=== PATIENT | female | born 1950 | race Caucasian/White ===

== ENCOUNTER 2023-06-22 07:20 | Day surgery (SDC) | payer MEDICARE, OTHER, SELFPAY ==
[2023-06-22] VITALS (11 sets, daily range): BP systolic 89–136; BP diastolic 52–74; BMI 31.2; BMI 27.9
[2023-06-22] MEDS: NSS 218 ML IV (07:57)
[2023-06-22 08:06] LABS: Glucose - Point of Care 166 mg/dl (70-99)
--- NOTE | 2023-06-22 09:21 | ITS.CL.CATH ---
Roll Finisher - Catheterization
Cardiac Catheterization
Procedure Report:
CARDIAC CATHETERIZATION REPORT
Date of Procedure: 06/22/2023
Referring: Sixto Davies MD
Indication: Chronic but worsening exertional dyspnea with severe pulmonary hypertension and oxygen dependent COPD
HEMODYNAMIC DATA (RHC performed at weight 167 pounds on 3 L/min O2)
AO: 108/55
LV: 108/16
PCWP: 14
PA: 97/34
RV: 97/16
RA: 12
Oximetry: Ao 91%, PA 68%, cardiac output 4.4, cardiac index 2.4
LEFT VENTRICULOGRAPHY: Normal segmental wall motion with EF 68%
CORONARY ANGIOGRAPHY
Dominance: Right
Left Main: Normal
LAD: Normal 30% proximal and 40% mid LAD stenoses similar in appearance to the prior study from 01/27/2022
Circumflex: 50-60% proximal OM1 stenosis with 60% circumflex stenosis immediately distal to the origin of OM1. The circumflex terminates with a small OM 2.
RCA: Dominant calcified vessel with diffuse mild luminal disease throughout
Closure Device: None-the procedure was performed via the right radial artery and right femoral vein. The Jimbo's test was normal prior to the procedure.
Radiation (mGy): 339
DAP (cm2.Gy): 33.9
Fluoroscopy time: 7.0 minutes
CONCLUSIONS
1: Normal left heart filling pressures with elevated right heart filling pressures and severe pulmonary hypertension
2: Normal left ventricular segmental wall motion with EF 68%
3. Noncritical CAD as described similar in appearance to the prior study from January 2022
4. Compared with the prior study from January 2022, the pulmonary artery pressure has increased (was measured in 2021 at 82/24 with PCWP 20 and RA 15). The coronary anatomy is similar
Copy to: Sixto Davies MD, Harish Wen MD, Elisabeth Diane DO
Brandan Mayorga MD, [facility], [facility]
== END 2023-06-22 12:45 | disposition home or self-care (01) ==
LOC: CATH 07:20
PROVIDERS: ATTENDING PHYSICIAN Internal Medicine Cardiovascular Disease; FAMILY PHYSICIAN Family Medicine
DX: I25.10 Atherosclerotic heart disease of native coronary artery without angina pectoris (principal); J44.9 Chronic obstructive pulmonary disease, unspecified; Z99.81 Dependence on supplemental oxygen; I27.20 Pulmonary hypertension, unspecified; R06.00 Dyspnea, unspecified; I25.84 Coronary atherosclerosis due to calcified coronary lesion; E11.9 Type 2 diabetes mellitus without complications; I10 Essential (primary) hypertension; E78.5 Hyperlipidemia, unspecified
CPT/HCPCS: 82962; 93460; C1894; Q9967

== ENCOUNTER 2023-09-11 21:40 | Inpatient (IN) | payer MEDICARE, OTHER, SELFPAY ==
[2023-09-11] VITALS (11 sets, daily range): BP systolic 114–144; BP diastolic 63–96; BMI 26.5; BMI 25.3
[2023-09-11 16:16] LABS: % Basophils 0.4 % (0-2); % Eosinophils 0.1 % (0-6); % Immature Granulocytes 0.3 % (0-0.5); % Lymphocytes 12.1 % (20.5-51.1); % Neutrophils 80.1 % (42.2-75.2); Absolute Lymphocytes 1.2 10^3/uL (1.2-3.4); Absolute Monocytes 0.7 10^3/uL (0.1-0.6); Absolute Neutrophils 7.8 10^3/uL (1.4-6.5); Hematocrit 36.8 % (37.0-47.0); Hemoglobin 12.8 g/dL (12.0-16.0); Mean Corp Hgb Conc. 34.8 g/dL (33.0-37.0); Mean Corpuscular Hgb 31.1 pg (27.0-31.0); Mean Corpuscular Volume 89.5 fL (81.0-99.0); Mean Platelet Volume 13.2 fL (7.4-10.4); Nucleated Red Blood Cells % 0 %; Platelet Count 161 10^3/uL (130-400); Red Blood Cell Count 4.11 10^6/uL (4.20-5.40); Red Cell Dist. Width 13.6 % (11.5-14.5); White Blood Cell Count 9.8 10^3/uL (4.8-10.8)
[2023-09-11 16:30] LABS: ALT (SGPT) 36 U/L (0-35); AST (SGOT) 31 U/L (14-36); Albumin 4.8 g/dl (3.5-5.0); Alkaline Phosphatase 48 U/L (38-126); Blood Urea Nitrogen 44 mg/dl (7-17); Calcium 10.4 mg/dl (8.4-10.2); Carbon Dioxide 23 mmol/L (22-30); Chloride 97 mmol/L (98-107); Estimated Creatinine Clearance 23 ml/min; Glucose 124 mg/dl (70-99); Potassium 3.9 mmol/L (3.5-5.1); Sodium 136 mmol/L (135-145); Total Bilirubin 0.8 mg/dl (0.2-1.3); Total Protein 7.1 g/dl (6.3-8.2)
[2023-09-11 16:44] LABS: NT-proBNP 17900 pg/ml
--- NOTE | 2023-09-11 17:51 | ED.GENMED ---
History of Present Illness
General
Chief Complaint: Breathing Problem
Source: patient
Exam Limitations: none
Time Seen by Provider: 09/11/23 17:01
Nursing documentation reviewed up to this point in time: agreed with
Travel History
Have you had any contact with someone who has COVID-19?: No
Do you have any symptoms of coronavirus? Fever > 100 degrees, chills, cough, shortness of breath, sore throat, loss of taste or smell, muscle aches, or headache?: No
History of Present Illness
History of Present Illness:
Patient with history of oxygen dependent COPD and pulmonary hypertension, presents to ED secondary to increased shortness of breath when she attempted to take bath this afternoon. Denies chest pain. Denies fever or chills. Denies nausea,
vomiting, or diarrhea. Denies leg pain or swelling. Denies back pain. At the time of exam in ED, on 6 L oxygen via nasal cannula, patient states that she feels improved. Unfortunately, patient has had ongoing shortness of breath for months,
including multiple admissions at [facility] recently. 2 days ago, patient had consultation with new proposal writer and [facility], who is in the midst of gathering previous test results from different specialists, to come up with 'game
plan'. Patient reports feeling frustrated and feeling depressed due to her ongoing health issues. However, denies suicidal ideation.
Review of Systems
Review of Systems
Allergies reviewed?: Yes
All Other Systems: ROS reviewed and negative except as documented in HPI and ROS
Constitutional: Reports no symptoms
EENT: Reports no symptoms
Respiratory: Reports cough and trouble breathing
Cardiac: Reports no symptoms
ABD/GI: Reports no symptoms
: Reports no symptoms
Musculoskeletal: Reports no symptoms
Skin: Reports no symptoms
Neurological: Reports no symptoms
Phy Exam
Physical Exam
Physical Exam:
Physical Exam
General: mild distress, not acutely ill. afebrile
Head: nc/at. eomi
Neck: supple. no meningeal signs.
Heart: s1/s2 regular rate and rhythm, no murmur. equal radial pulses.
Lungs: no acute respiratory distress. diminished breath sounds bilaterally
Abdomen: normal bowel sounds. not tender.
Neuro: alert and oriented. no focal neurological deficits
Skin: no rash
Psychiatric: well kept. interactive and cooperative
Extremities: no edema. no calf tenderness.
Scores
Heart Failure Risk
Heart Failure Risk Score: Yes
History of Stroke or TIA: No
History of intubation for respiratory distress: No
Heart rate on ED arrival >/= 110: No
SaO2 <90% on arrival on room air: Yes
HR >/=110 during 3min walk test (or too ill to perform test): No
ECG has acute ischemic changes: Yes
Urea >/=12mmol/L (BUN 33.6mg/dL): Yes
Serum CO2>/=35mmol/L: No
Troponin I or T elevated to HI Level (0.4mg/dL): No
NT-proBNP >/=5,000ng/L (5,000pg/ml): Yes
HF Risk Score: 5
Admission Status: VERY HIGH RISK 39.8% Consider admission to hospital
Course
Orders/Labs/Results
Orders:
Orders
09/11/23 Dinner
Cholesterol Lowering
At Your Request: Full Participation
Cholesterol Lowering: Sodium, 2 Gram
09/11/23 16:01
EKG [Electrocardiogram (*1)] Urgent
Reason for Study: Shortness of Breath
EKG- Treatment ONCE
09/11/23 16:09
Complete Blood Count/With Diff Urgent
Comprehensive Metabolic Panel Urgent
NT-proBNP Urgent
Troponin I Urgent
09/11/23 16:47
CXR Port [CR Chest Portable - 1 View] Urgent
Comment:
Reason For Exam: sob
Reason Study Needs to be Portable: Unable to Transport
09/11/23 20:28
Electrocardiogram (*1) Urgent
Reason for Study: Chest Pain
EKG- Treatment ONCE
09/11/23 20:30
Nitroglycerin Sublingual [Nitrostat (Sublingual)] 0.4 mg SL NOW STA
09/11/23 20:39
Troponin I Urgent
09/11/23 21:15
Admit/Transfer Patient As Directed
Co-Sign Provider:
Level of Care: Inpatient admission
Assign to:: IMU- Intermediate Care
Physician / Group: Hospitalist
Diagnosis: Shortness of breath
Reason for Hospitalization: Shortness of breath
Expected length of stay greater than two midnights?: Yes
ELOS- Estimated Length of Stay in days: 5
I certify the patient meets the requirements for IP care: Yes
09/11/23 21:18
Code Status As Directed
Resuscitation Status: Do not resuscitate
Reached after discussion with pt or family/Healthcare POA: Yes
Decision communicated with: patient and family at bedside
09/11/23 21:19
DNR Bracelet Application ONCE
09/11/23 22:49
Acetaminophen [Tylenol] 650 mg PO Q4HPRN PRN
Ipratropium/Albuterol Sulfate [Duoneb] 3 ml INH R TIDPRN PRN
Nitroglycerin Sublingual [Nitrostat (Sublingual)] 0.4 mg SL [id number] PRN
Trazodone [Desyrel] 100 mg PO HS
09/11/23 22:49
CARDIOLOGY CONSULT Routine
Consulting Provider: Lilian De La Cruz
Was physician already notified: Yes
Reason for consult: chest pain and SOB, elevated troponin
Activity As Directed
Activity Level: Bedrest
INT (Intravenous Needle Therapy) As Directed
Comment: maintain peripheral IV access
Intake/ Output As Directed
Frequency: Per unit guidelines
Pneumatic Compression Sleeves As Directed
Type: Knee high
Vital Signs As Directed
Frequency: q4h
Weight As Directed
Frequency: Daily
O2 Therapy [RESP] Routine
Nasal Cannula Liter Flow: 6 LPM
Titrate/Wean O2 to maintain O2 sat greater than (%): 90
DX Deep Vein Thrombosis Video Routine
09/11/23 23:00
Alprazolam [Xanax] 0.5 mg PO HS
09/12/23
Basic Metabolic Panel IN AM
Cardiovascular Evaluation IN AM
09/12/23 04:49
Electrocardiogram (*1) Q6H
Reason for Study: Chest Pain
Comment: at admission and Q3H for total of 3, to be done with each troponin
09/12/23 06:21
Complete Blood Count/No Diff IN AM
09/12/23 08:00
Albuterol [ProAIR HFA INHALER] 2 puff INH R TID
Atorvastatin [Lipitor] 10 mg PO DAILY
Bumetanide [Bumex] 2 mg PO BID@0800,1600
Buspirone [Buspar] 15 mg PO BID
Docusate Sodium [Colace] 100 mg PO BID
Ezetimibe [Zetia] 10 mg PO DAILY
Paroxetine [Paxil] 40 mg PO DAILY
Pioglitazone HCl [Actos] 15 mg PO DAILY
Spironolactone [Aldactone] 25 mg PO Q48H
Abnormal Lab Results
09/11/23 09/11/23
16:09 20:39
RBC 4.11 L 10^6/uL
(4.20-5.40)
Hct 36.8 L %
(37.0-47.0)
MCH 31.1 H pg
(27.0-31.0)
MPV 13.2 H fL
(7.4-10.4)
Absolute Neuts (auto) 7.8 H 10^3/uL
(1.4-6.5)
Absolute Monos (auto) 0.7 H 10^3/uL
(0.1-0.6)
Neutrophils % 80.1 H %
(42.2-75.2)
Lymphocytes % 12.1 L %
(20.5-51.1)
Chloride 97 L mmol/L
(98-107)
BUN 44 H mg/dl
(7-17)
Creatinine 1.9 H mg/dL
(0.6-1.0)
Glucose 124 H mg/dl
(70-99)
Calcium 10.4 H mg/dl
(8.4-10.2)
ALT 36 H U/L
(0-35)
Troponin I 0.240 H* ng/ml 0.236 H* ng/ml
09/11/23 16:09
09/11/23 16:09
Vital Signs
Initial and Last Documented VS:
Initial Vital Signs
Temp Pulse Resp BP Pulse Ox
97.3 F 76 24 115/63 99
09/11/23 15:50 09/11/23 15:50 09/11/23 15:50 09/11/23 15:50 09/11/23 15:50
Last Documented Vital Signs
Temp Pulse Resp BP Pulse Ox
97.7 F 111 20 126/72 97
09/13/23 04:10 09/13/23 08:52 09/13/23 08:01 09/13/23 08:52 09/13/23 08:01
MDM/Problems Addressed
MDM/Problems Addressed:
History and exam concerning for worsening overall pulmonary hypertension. However, in light of abnormal EKG and troponin, discussed with administration vice president clinical team manager () who feels that findings are likely secondary to severe hypertension and less
likely ACS. In addition, patient also found to be in ARF, likely from overdiuresis. Patient may benefit from also echocardiogram, as she has had history of pericardial effusion, which required drainage.
*Critical Care Note
Total Time (30-74mins, 75-104mins- exclusive of procedures): Not Applicable
ED Attending Note
-
Portions of this chart may have been created with voice recognition software.� Occasional wrong word or��sound alike� substitutions may have occurred due to the inherent limitations of voice recognition software.
Discharge Plan
Departure
Patient Disposition: Admit
Date of Disposition: 09/11/23
Time of Disposition: 18:22
Admit to: Telemetry
Presentation/result/management discussed w/ accepting MD/DO: Hospitalist
Discharge Problem:
ANNE (dyspnea on exertion), Abnormal cardiac enzyme level, Acute renal failure
Interventions
Interventions:
*Risk Screen - Suicide Last Done: 09/11/23 15:50
*General Assessment Last Done: 09/11/23 15:50
*Neglect/Abuse Screening Last Done: 09/11/23 15:50
ED- Fall Risk Assessment Last Done: 09/11/23 16:02
*ED COVID-19 Vaccine History Last Done: 09/11/23 15:50
*Nursing Disposition Last Done: 09/11/23 22:38
ED- Cardiac Assessment Last Done: 09/11/23 20:07
ED- Pulmonary Assessment Last Done: 09/11/23 20:07
Discharge Date and Time
Discharge Date/Time: 09/11/23 22:38
--- NOTE | 2023-09-11 18:28 | PHANOTE ---
09/11/2023, [facility], spoke to pt. to obtain her med. history; pt. gets her meds. through ; used [facility] records from 04/29/2022 and pharmacy records to confirm pt.'s meds.; [facility] records match the way pt. is currently taking the majority of
her meds.
--- NOTE | 2023-09-11 20:09 | EDRN ---
Pt is on 5 lpm O2 at home continuously. Pt noted increased trouble breathing over past couple days. Pt has sob with exertion. Pt says her breathing feels 'much better' here. Pt has chronic mid back pain. Pt denies cp, abd pain, n/v,
fever/chills/cough, urinary symptoms, dizziness, weakness.
[2023-09-11] MEDS: NITROSTAT (SUBLINGUAL) 0.400000000000000022 MG SL (20:36)
--- NOTE | 2023-09-11 20:41 | HPS.HSE ---
Family Physician
-
Family Physician: Haroldo Soto
Chief Complaint
-
Shortness of breath
History of Present Illness
73 woman with history of oxygen dependent COPD, and pulmonary hypertension, comes to ED with increased shortness of breath when she attempted to take bath this afternoon. She initially Denied 'chest pain,' but stated instead that she has 'chest
discomfort.' She Denies fever, chills, nausea, vomiting, diarrhea, leg pain or swelling, back pain. At the time of exam in ED, she was on 6 L oxygen via nasal cannula, and she did state that she felt improved. She has had ongoing shortness of
breath for months, including multiple admissions at [facility] recently. 2 days ago, she had a consultation with a new ict development manager at [facility]. The ict development manager is in the midst of gathering previous test results from different
specialists, to come up with 'game plan'.
Medical History
Past Medical History
Past Medical History: Reports Other
Additional Past Medical History:
on 04/01/22 she had an Aborted robotic pericardial window, which was converted to Subxiphoid Pericardiotomy and Pericardiectomy into the left chest (secondary to cardiac tamponade)
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
History of pericardiocentesis in January 2022
acute heart failure secondary to cardiac tamponade requiring diuresis
Oqp-eypzojc-djryjwigi diabetes type 2
essential Hypertension
Hyperlipidemia
Severe COPD/chronic hypoxic respiratory insufficiency on home oxygen
Mild to moderate nonobstructive coronary artery disease
Severe pulmonary hypertension
Chronic insomnia
Multi-nodular thyroid status post partial thyroidectomy
Peripheral arterial disease with lower extremity claudication
Depression
History of hysterectomy
Former tobacco abuse, quit in April 2019
Past Surgical History: Reports Other
Additional Past Surgical History:
See above
Social History
Tobacco: Non-smoker
Alcohol: None
Living: With Family
Family History
Family History: Not pertinent
Allergies / Home Medications
Allergies reflects when Allergies were last updated in [facility].
Home Medications with original date entered in [facility]
Allergy/Medication List:
Allergies
Allergy/AdvReac Type Severity Reaction Status Date / Time
No Known Allergies Allergy Verified 09/11/23 18:50
Home Medications
Albuterol Nebulizer 1 dose inhalation R TID 09/11/23
alprazolam 0.5 mg tablet 0.5 mg PO HS 09/11/23
bumetanide 2 mg tablet 2 mg PO BID 09/11/23
buspirone 7.5 mg tablet 15 mg PO BID 09/11/23
docusate sodium 100 mg capsule (Stool Softener) 100 mg PO BID 09/11/23
ezetimibe 10 mg tablet 10 mg PO DAILY 09/11/23
fluticasone fur. 100 mcg-umeclid 62.5 mcg-vilant 25 mcg inhalat.powder (Trelegy Ellipta) 1 inh inhalation R DAILY 09/11/23
glyburide 5 mg-metformin 500 mg tablet 2 tab PO BID 09/11/23
ibuprofen 200 mg tablet 400 mg PO DAILYPRN PRN mild pain 09/11/23
ipratropium 0.5 mg-albuterol 3 mg (2.5 mg base)/3 mL nebulization soln 3 ml inhalation R TIDPRN PRN sob/wheezing 09/11/23
paroxetine HCl 40 mg tablet 40 mg PO DAILY 09/11/23
pioglitazone 15 mg tablet 15 mg PO DAILY 09/11/23
pitavastatin calcium 2 mg tablet 2 mg PO DAILY 09/11/23
spironolactone 25 mg tablet 25 mg PO Q48H@0800 09/11/23
trazodone 100 mg tablet 100 mg PO HS 09/11/23
Review of Systems
-
History Source: Patient
A 12 point ROS was completed and negative except as noted: Yes
Physical Exam
Vital Signs
Vital Signs
Temp Pulse Resp BP Pulse Ox
97.8 F 104 32 144/83 98
09/11/23 20:00 09/11/23 20:34 09/11/23 20:34 09/11/23 20:34 09/11/23 20:34
Physical Exam
General: Well Developed, Well Nourished, Respiratory Distress and Appears in Distress
HEENT: NormoCephalic, Moist mucous membranes, No Ptosis, Nose Appears Normal and Ears Appear Normal
Respiratory: Clear and Decreased Breath Sounds
Cardiac: S1/S2 and Regular Rhythm
GI: Soft, Non Tender and Non Distended
Musculoskeletal: No Clubbing, No Cyanosis and No Edema
Skin: Warm and Dry; No Rash or Jaundice
Neuro: Awake, Alert, Oriented and AO x 3
Psych: Calm
Laboratory Results
-
09/11/23 16:09
09/11/23 16:09
Laboratory Results
Total Bilirubin 0.8 mg/dl (0.2-1.3) 09/11/23 16:09
AST 31 U/L (14-36) 09/11/23 16:09
ALT 36 U/L (0-35) H 09/11/23 16:09
Alkaline Phosphatase 48 U/L (38-126) 09/11/23 16:09
Troponin I 0.240 ng/ml H* 09/11/23 16:09
Data Reviewed
-
Lab Data: Labs Reviewed by me
Impression/Plan
-
IMPRESSION:
73 woman with complex PMH comes in with worsening SOB.
Significant findings:
BUN/Creat 44/1.9, baseline 28/1.1
Troponin 0.240
BNP 17,900
Ca 10.4
PLAN:
1. SOB - multifactorial. Combo of COPD, CAD, Pulm HTN, CHF. Case d/w cardiology.
For tonight:
Nitro
Morphine
Oxygen
Cycle troponins
Telemetry
Then in am:
Full cardiology consult
Echo
Avoid heparin given recent head bleed.
2. 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
Check echo in am
3. acute heart failure secondary to cardiac tamponade requiring diuresis
Likely over diursed at this time, given BUN/Creatinine
Recheck fluid status after echo in am
4. Adh-dwmdlsr-klwsmjudn diabetes type 2
Check FSGluc throughout the day
5. essential Hypertension - Continue current BP meds
6. Hyperlipidemia - Continue home med
7. Severe COPD/chronic hypoxic respiratory insufficiency on home oxygen
Continue home oxygen
8. Mild to moderate nonobstructive coronary artery disease
Cycle troponins
7. Severe pulmonary hypertension - Check echo in am
8. Chronic insomnia - continue trazodone
9. Multi-nodular thyroid status post partial thyroidectomy - Check TSH
10. Peripheral arterial disease with lower extremity claudication - bed rest for now
11. Depression - continue SSRI
Code: DNR
VCD for DVTp
--- NOTE | 2023-09-11 20:41 | EDRN ---
Asked pt if pain in chest any different, pt stuck out her tongue and ntg tablet still there. Instructed pt to put it under her tongue and let it dissolve.
--- NOTE | 2023-09-11 20:46 | EDRN ---
Pt reports no change in cp after ntg sl
--- NOTE | 2023-09-11 20:51 | EDRN ---
Dr Garcia notified via TT that pt had no change in cp with sl ntg
[2023-09-11 21:10] LABS: Troponin I 0.236 ng/ml
--- NOTE | 2023-09-11 21:11 | PTCARENOTE ---
Pt has no complaints at this time. Assessment care and vitals as charted, Call hernandez within reach.
[2023-09-11] MEDS: XANAX 0.5 MG PO (23:00)
[2023-09-11] MEDS: DESYREL 100 MG PO (23:00)
[2023-09-12] VITALS (13 sets, daily range): BP systolic 101–139; BP diastolic 56–87
[2023-09-12 03:47] LABS: Troponin I 0.203 ng/ml
--- NOTE | 2023-09-12 04:05 | PTCARENOTE ---
Pt AAOx3 having some anxiety, nigh medication given. Pt able to be weaned down to 4L NC, SPO@ 99%. Pt states she is no longer having chest 'pain' just 'discomfort' at times. EKG w/Trop Q3 to total 3, last one for 0600 this AM. Pt had no further
complaints at this time. Assessment care and vitals as charted. Call hernandez with in reach.
[2023-09-12 06:30] LABS: Hematocrit 35.5 % (37.0-47.0); Hemoglobin 12.4 g/dL (12.0-16.0); Mean Corp Hgb Conc. 34.9 g/dL (33.0-37.0); Mean Corpuscular Hgb 31.4 pg (27.0-31.0); Mean Corpuscular Volume 89.9 fL (81.0-99.0); Mean Platelet Volume 13.4 fL (7.4-10.4); Platelet Count 152 10^3/uL (130-400); Red Blood Cell Count 3.95 10^6/uL (4.20-5.40); Red Cell Dist. Width 13.7 % (11.5-14.5); White Blood Cell Count 7.8 10^3/uL (4.8-10.8)
[2023-09-12 06:44] LABS: Blood Urea Nitrogen 39 mg/dl (7-17); Calcium 9.9 mg/dl (8.4-10.2); Carbon Dioxide 26 mmol/L (22-30); Chloride 102 mmol/L (98-107); Estimated Creatinine Clearance 31 ml/min; Glucose 127 mg/dl (70-99); HDL Cholesterol 43 mg/dl; LDL Cholesterol, Calculated 55 mg/dl; Potassium 4.1 mmol/L (3.5-5.1); Sodium 139 mmol/L (135-145); Total Cholesterol 120 mg/dl (50-199); Triglyceride 114 mg/dl (10-149); Very Low Density Lipoprotein 22 mg/dl (0-30); eGFR 39.23
[2023-09-12 06:56] LABS: Troponin I 0.168 ng/ml
--- NOTE | 2023-09-12 07:34 | CON.CAR ---
Consultation
Consultation Request
Date/Time Consultation Requested: 09/11/2023
Date/Time Consultation Performed: 09/11/2023
Reason for Consultation: Shortness of breath
Medical History
-
Chief Complaint: Shortness of breath
History of Present Illness:
73-year-old woman with history of severe pulmonary hypertension, COPD, oxygen dependent, hypertension, with history of left heart cath in May 2023 showing stable coronary artery disease, noncritical/nonischemic presented to the ER with shortness
of breath.
Patient does have a history of pericardial effusions and cardiac tamponade requiring pericardiocentesis back in January 2022. Patient had developed acute heart failure at that time. Patient went for robotic pericardial window which was done with
subsix fied pericardiotomy and pericardiectomy done via the left chest tube placement on 04/01/2022.
Left heart cath done in May 2023 shows stable coronary disease. Unchanged from 2021. Patient does have severe pulmonary hypertension with a PA pressure 98/34. At that time wedge pressure was 14 and LV end-diastolic pressure was 16 mmHg. This
showed noncardiac pulmonary hypertension.
PMHx:
Pericardial effusions:
Recurrent idiopathic pericardial effusion with cardiac tamponade physiology s/p
History of pericardiocentesis in January 2022
04/01/22 she had an Aborted robotic pericardial window, which was converted to Subxiphoid Pericardiotomy and Pericardiectomy into the left chest (secondary to cardiac tamponade)
acute heart failure secondary to cardiac tamponade requiring diuresis
Mcm-cxysuax-krwushawp diabetes type 2
essential Hypertension
Hyperlipidemia
Severe COPD/chronic hypoxic respiratory insufficiency on home oxygen
Mild to moderate nonobstructive coronary artery disease
Severe pulmonary hypertension
Chronic insomnia
Multi-nodular thyroid status post partial thyroidectomy
Peripheral arterial disease with lower extremity claudication
Depression
Past Medical History
Past Medical History: Arrhythmias, CAD, CHF, COPD, HTN, NIDDM, Psychiatric and Other
Social History
Tobacco: Former Smoker (Quit 04/2019)
Living: With Family
Family History
Family History: Reviewed & Not Pertinent
Allergies / Home Medications
Allergy/AdvReac Type Severity Reaction Status Date / Time
No Known Allergies Allergy Verified 09/11/23 18:50
�Medication �Instructions �Recorded �Confirmed �Type
Albuterol Nebulizer 1 dose inhalation R TID 09/11/23 09/11/23 History
alprazolam 0.5 mg tablet 0.5 mg PO HS 09/11/23 09/11/23 History
bumetanide 2 mg tablet 2 mg PO BID 09/11/23 09/11/23 History
buspirone 7.5 mg tablet 15 mg PO BID 09/11/23 09/11/23 History
docusate sodium 100 mg capsule 100 mg PO BID 09/11/23 09/11/23 History
(Stool Softener)
ezetimibe 10 mg tablet 10 mg PO DAILY 09/11/23 09/11/23 History
fluticasone fur. 100 mcg-umeclid 1 inh inhalation R DAILY 09/11/23 09/11/23 History
62.5 mcg-vilant 25 mcg
inhalat.powder (Trelegy Ellipta)
glyburide 5 mg-metformin 500 mg 2 tab PO BID 09/11/23 09/11/23 History
tablet
ibuprofen 200 mg tablet 400 mg PO DAILYPRN PRN mild pain 09/11/23 09/11/23 History
ipratropium 0.5 mg-albuterol 3 mg 3 ml inhalation R TIDPRN PRN 09/11/23 09/11/23 History
(2.5 mg base)/3 mL nebulization sob/wheezing
soln
paroxetine HCl 40 mg tablet 40 mg PO DAILY 09/11/23 09/11/23 History
pioglitazone 15 mg tablet 15 mg PO DAILY 09/11/23 09/11/23 History
pitavastatin calcium 2 mg tablet 2 mg PO DAILY 09/11/23 09/11/23 History
spironolactone 25 mg tablet 25 mg PO Q48H@0800 09/11/23 09/11/23 History
trazodone 100 mg tablet 100 mg PO HS 09/11/23 09/11/23 History
Review of Systems
-
All other systems: Negative unless noted
Physical Exam
Vital Signs
Temp Pulse Resp BP Pulse Ox
97.9 F 94 27 139/76 97
09/12/23 07:30 09/12/23 06:00 09/12/23 06:00 09/12/23 06:00 09/12/23 06:00
Lab Results
09/12/23 06:21
09/12/23 Unknown
Troponin I 0.168 ng/ml H* 09/12/23 Unknown
Bsu-H-Madrgzpuqho Pept 57665 pg/ml 09/11/23 16:09
Physical Exam
General: Well Developed, Well Nourished and No Apparent Distress
HEENT: Normocephalic, Anicteric and Moist Mucous Membranes
Respiratory: Clear and Non Labored Respirations
Cardiac: S1/S2, Regular Rhythm and Murmur
GI: Soft, Non Tender and Non Distended
Musculoskeletal: No Clubbing, No Cyanosis and No Edema
Skin: Warm and Dry
Neuro: Awake, Alert, Oriented, AO x 3 and No Motor Deficits
Psych: Calm
Impression / Plan
-
73-year-old woman with a past medical history of acute on chronic heart failure, severe pulmonary hypertension, recurrent pleural and pericardial effusion status post pericardial window, COPD, home oxygen dependence presented with worsening of
shortness of breath.
shortness of breath
-Multifactorial.
-Combination of COPD, severe pulmonary hypertension, CHF with fluid overload, and hypoxia
-Mild troponin leak is expected especially with strain on the RV with severe pulm hypertension and exacerbated heart failure.
-Trend troponin. If significantly rise or rising trend noted, we will consider more invasive measures.
-Patient was started on heparin. Most likely non-IL troponin leak. Acute coronary syndrome is extremely less likely.
-Treat with nitroglycerin drip, morphine, oxygen.
-Continue on telemetry.
-Patient is hemodynamically stable. JVD is not significantly pronounced. Cardiac tamponade is extremely less likely.
-Pericardial effusion is possible however already had pericardial window.
Acute heart failure
-History of cardiac tamponade in the past. Status post pericardial window
-Severe pulm hypertension.
-History of RV failure in the past.
-No clinical evidence of cardiac tamponade.
-Agree with diuresis at this time. Patient was on 5 L of oxygen at home which was not working well for her.
-She is on Bumex 2 mg twice daily at baseline at home.
-If not enough urine output noted, can start Lasix drip. Goal to have at least 500 cc negative in a day.
Essential hypertension
-Currently on Bumex and spironolactone.
-Not on any strong antihypertensives at baseline.
-Continue to monitor.
Coronary artery disease
-On aspirin, Zetia, pitavastatin
Data Reviewed
-
EKG: Tracing Personally Visualized and interpreted and Report Reviewed by me
Radiology: Image Personally Visualized and interpreted, Report Reviewed by me, Discussed with Physician and Discussed with Patient
Medical Tests (Nuc Med, Echo etc): Image Personally Visualized and interpreted and Report Reviewed by me
Labs: Labs Reviewed by me and Discussed with Physician
Old Records: Reviewed
Total Time Spent with Patient (in minutes): 80
[2023-09-12] MEDS: ProAIR HFA INHALER 2 PUFF INH ×3 (07:53→20:33)
[2023-09-12] MEDS: SPIRIVA RESPIMAT 2.5 MCG 2 PUFF INH (07:53)
[2023-09-12] MEDS: SYMBICORT 80/4.5 MCG INHALER 2 PUFF INH ×2 (07:53→20:32)
[2023-09-12] MEDS: ALDACTONE 25 MG PO (08:08)
[2023-09-12] MEDS: BUMEX 2 MG PO ×2 (08:08→17:38)
[2023-09-12] MEDS: COLACE 100 MG PO ×2 (08:08→21:00)
[2023-09-12] MEDS: LIPITOR 10 MG PO (08:08)
[2023-09-12] MEDS: PAXIL 40 MG PO (08:08)
[2023-09-12] MEDS: ZETIA 10 MG PO (08:08)
[2023-09-12] MEDS: ACTOS 15 MG PO (08:08)
[2023-09-12] MEDS: BUSPAR 15 MG PO ×2 (08:08→21:01)
--- NOTE | 2023-09-12 10:49 | W.PN.HOSP.TC ---
Today's Communication/Plan
-
CW Diuretics
ECHO
Await Cads input
Follow Cr closely
Hold DM oral regimen and follow SSI
Assessment / Plan
Assessment / Plan
SOB-acute on chronic worsening. Patient known to have severe pulmonary hypertension. She had a recent left and right heart catheterization May of this year. Right heart catheterization then showed increased pulmonary hypertension but no
evidence of left-sided increased filling pressures.
Currently patient with elevated BNP and indeterminate troponins-rule out new left heart failure.
BNP elevation can also be noted in right ventricular failure which is a possibility in her with severe pulmonary hypertension.
She seems stable on her 5 L home O2 oxygen currently. Check an echocardiogram. Await cardiology input.
If her left ventricular heart failure is ruled out,will consult pulmonary for pulmonary hypertension treatments.
CW home diuretics
Elevated troponins-left heart catheterization in June 19 showed nonobstructive CAD. Troponins in the intermediate level suspect nonischemic myocardial injury. Continue to follow
CKD 3 with elevated Cr - eval for KYLIE. Clincally no obvious fluid overload - CXR neg for CHF,no LE edema , no anasarca. Hard to eval fluid status. No extrarenal losses based on the history. Cr improved. Follow Cr for now.
Chronic hypoxic respiratory sufficiency-patient on 4 L of oxygen at home which she will continue
History of COPD-currently without any flare.
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
Check echo
Tof-azfgguv-pnainhdpi diabetes type 2
Will consider using pioglitazone and heart failure situation. For now hold glyburide and metformin combination. Follow on a sliding scale insulin.
Essential Hypertension - Continue current BP meds
Hyperlipidemia - Continue home med
Chronic insomnia - continue trazodone
Multi-nodular thyroid status post partial thyroidectomy - Check TSH
Peripheral arterial disease with lower extremity claudication
Depression - continue SSRI
Code: DNR
VCD for DVTp
Avoid heparin given recent head bleed.
Total time spent on today's encounter was 52 minutes which included time spent in counseling the patient regarding diagnosis and treatment plan as listed above, goals of care, and symptom management. Case was discussed with nursing staff,
specialists . All labs and imaging personally reviewed by me. Remainder the time spent in detailed review of previous records, lab data, imaging, and other medical provider documentation.
Anticipated Discharge: > 48 hours
Subjective/Interval History
-
Date of Service: September 12, 2023
Came in with worsening shortness of breath.
She saw budget specialist Wednesday this week at the [facility] and was planning to be initiated on oral medication for SOB.
She is known to have Pulm HTN.
Since wednesday and also even prior to that she has progressive shortness of breath. During my visit this am ,she was lying flat on the left lateral side without undue distress or SOB.
Mostly dry cough. No fever or chills.
Denies any chest pain or palpitations.
Objective Data
-
Labs:
Laboratory Results
09/12/23 09/12/23
06:21 Unknown
WBC 7.8
Hgb 12.4
Hct 35.5 L
Plt Count 152
Sodium 139
Potassium 4.1
Chloride 102
Carbon Dioxide 26
BUN 39 H
Creatinine 1.4 H
Glucose 127 H
Calcium 9.9
Vital Signs:
Vital Signs
Temp Pulse Resp BP Pulse Ox
97.9 F 94 16 115/73 96
09/12/23 07:30 09/12/23 08:08 09/12/23 08:04 09/12/23 08:08 09/12/23 08:04
I&O
09/11/23 09/12/23 09/13/23
06:59 06:59 06:59
Intake Total 480 / 480
Balance 480 / 480
Review of Systems
-
Constitutional: Denies Fever
EENT: Denies Sore Throat
Respiratory: Reports Cough and Trouble Breathing
Cardiac: Denies Chest Pain
Abdomen/GI: Denies Abdominal Pain, Nausea, Vomiting or Diarrhea
Neuro: Denies Dizzy
Physical Exam
-
General: No Apparent Distress
HEENT: Moist Mucous Membranes
Respiratory: Clear to Auscultation
Cardiac: Regular Rhythm and S1/S2
GI: Soft, Nontender, Nondistended and Normal Bowel Sounds
Musculoskeletal: No Edema
Neuro: AO x 3
Psych: Calm; Negative Confused or Agitated
Data Reviewed
-
Labs: Labs Reviewed by me
[2023-09-12 12:00] LABS: Glycohemoglobin (HgbA1c) 7.1 % (4.0-5.6)
[2023-09-12] MEDS: DESYREL 100 MG PO (21:01)
[2023-09-12] MEDS: XANAX 0.5 MG PO (21:02)
[2023-09-13] VITALS (9 sets, daily range): BP systolic 93–126; BP diastolic 60–107; BMI 24.8
--- NOTE | 2023-09-13 00:23 | PTCARENOTE ---
Care assumed of Pt from previous RN. Pt resting in bed with relaxation music on TV, RR even and unlabored. Pt on 4L NC. Using BSC as needed. Pt took all PM meds with water. Call hernandez in reach, Pt expresses no further needs at this time.
[2023-09-13 06:09] LABS: Hematocrit 36.4 % (37.0-47.0); Hemoglobin 12.5 g/dL (12.0-16.0); Mean Corp Hgb Conc. 34.3 g/dL (33.0-37.0); Mean Corpuscular Hgb 31.3 pg (27.0-31.0); Mean Platelet Volume 12.4 fL (7.4-10.4); Platelet Count 154 10^3/uL (130-400); Red Cell Dist. Width 13.8 % (11.5-14.5)
[2023-09-13 06:29] LABS: Blood Urea Nitrogen 30 mg/dl (7-17); Calcium 10.1 mg/dl (8.4-10.2); Carbon Dioxide 28 mmol/L (22-30); Chloride 102 mmol/L (98-107); Estimated Creatinine Clearance 34 ml/min; Glucose 129 mg/dl (70-99); Potassium 3.6 mmol/L (3.5-5.1); Sodium 139 mmol/L (135-145); eGFR 42.88
[2023-09-13] MEDS: SYMBICORT 80/4.5 MCG INHALER 2 PUFF INH ×2 (07:55→20:31)
[2023-09-13] MEDS: ProAIR HFA INHALER 2 PUFF INH ×3 (07:55→20:31)
[2023-09-13] MEDS: SPIRIVA RESPIMAT 2.5 MCG 2 PUFF INH (07:55)
[2023-09-13] MEDS: ZETIA 10 MG PO (08:52)
[2023-09-13] MEDS: BUMEX 2 MG PO ×2 (08:52→16:19)
[2023-09-13] MEDS: PAXIL 40 MG PO (08:52)
[2023-09-13] MEDS: LIPITOR 10 MG PO (08:52)
[2023-09-13] MEDS: BUSPAR 15 MG PO ×2 (08:53→21:09)
[2023-09-13] MEDS: COLACE 100 MG PO ×2 (08:53→21:08)
--- NOTE | 2023-09-13 10:47 | W.PN.HOSP.TC ---
Today's Communication/Plan
-
Follow echocardiogram. Continue current dose of diuretics.
Continue to follow creatinine.
Consult pulmonary.
Assessment / Plan
Assessment / Plan
SOB-acute on chronic worsening. Patient known to have severe pulmonary hypertension. She had a recent left and right heart catheterization May of this year. Right heart catheterization then showed increased pulmonary hypertension but no
evidence of left-sided increased filling pressures suggesting non cardiac pulm HTN.
Currently patient with elevated BNP and indeterminate troponins-rule out new left heart failure.
BNP elevation can also be noted in right ventricular failure which is a possibility in her with severe pulmonary hypertension.
She seems stable on her 4 L home O2 oxygen currently . Check an echocardiogram. Appt cardiology input . Discussed with cards today - recommend pulm HTN tx .
CW home diuretics
Elevated troponins-left heart catheterization in June 19 showed nonobstructive CAD. Troponins in the intermediate level suspect nonischemic myocardial injury. Continue to follow
CKD 3 with elevated Cr - based on improvement pt had an element of KYLIE. Clincally no obvious fluid overload - CXR neg for CHF,no LE edema , no anasarca. Hard to eval fluid status. No extrarenal losses based on the history. Cr improved. Follow Cr
for now.Advised no NSAIDs at home.
Chronic hypoxic respiratory sufficiency-patient on 4 L of oxygen at home which she will continue
History of COPD-currently without any flare.
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
Check echo
Xbc-urcscrn-vrecrawdc diabetes type 2
Will consider stopping pioglitazone in heart failure situation. For now hold glyburide and metformin combination. Follow on a sliding scale insulin. HbA1c 7.1
Essential Hypertension - Continue current BP meds
Hyperlipidemia - Continue home med
Chronic insomnia - continue trazodone
Multi-nodular thyroid status post partial thyroidectomy - Check TSH
Peripheral arterial disease with lower extremity claudication
Depression - continue SSRI
Code: DNR
VCD for DVTp
Avoid heparin given recent head bleed.
Total time spent on today's encounter was 52 minutes which included time spent in counseling the patient regarding diagnosis and treatment plan as listed above, goals of care, and symptom management. Case was discussed with nursing staff,
specialists . All labs and imaging personally reviewed by me. Remainder the time spent in detailed review of previous records, lab data, imaging, and other medical provider documentation.
[facility]
Will obtain more details from [facility]
Anticipated Discharge: 24 - 48 hours
Subjective/Interval History
-
Date of Service: September 13, 2023
not short of breath at rest. Her shortness of breath is mostly exertional.
Denies any chest pain.
No nausea vomiting.
No palpitations.
Objective Data
-
Labs:
Laboratory Results
09/13/23
05:50
WBC 8.0
Hgb 12.5
Hct 36.4 L
Plt Count 154
Sodium 139
Potassium 3.6
Chloride 102
Carbon Dioxide 28
BUN 30 H
Creatinine 1.3 H
Glucose 129 H
Calcium 10.1
Vital Signs:
Vital Signs
Temp Pulse Resp BP Pulse Ox
98.0 F 111 20 126/72 97
09/13/23 07:14 09/13/23 08:52 09/13/23 08:01 09/13/23 08:52 09/13/23 08:01
I&O
09/12/23 09/13/23 09/14/23
06:59 06:59 06:59
Intake Total 480 / 480 480 / 480
Balance 480 / 480 480 / 480
Review of Systems
-
Constitutional: Denies Fever
Abdomen/GI: Denies Abdominal Pain, Nausea or Vomiting
Neuro: Denies Dizzy
Physical Exam
-
General: No Apparent Distress
HEENT: Moist Mucous Membranes
Respiratory: Clear to Auscultation
Cardiac: Regular Rhythm and S1/S2
GI: Soft
Musculoskeletal: No Edema
Neuro: AO x 3
Psych: Calm
Data Reviewed
-
Labs: Labs Reviewed by me
--- NOTE | 2023-09-13 11:12 | W.PN.CD ---
Addendum entered and electronically signed by Napoleon Burroughs MD 09/13/23 13:20:
I saw and examined the patient.
The SURGEON CHIEF's note was reviewed and I agree with the note exect will hold off on adding Farxiga or Jardience as we assess best tx for pulmonary HTN
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
Patient reported increased exertional SOB. Currently comfortable on 4-5 liters NC which is similar to home O2. CXR without acute abnormality. weight is lower than recetn cath when PCWP was 14 mHg and no clear evidence of volume overload on exam.
Complex issues related to severe pulmonary HTN. Reviewed with Dr Beckman who has been speaking to her outpatient internship coordinator and internship coordinator at
- await pulmonary consult
- echo
- Patient ultimately can follow up with her internship coordinator at [facility] and if she is following down there can consdier pulmonary HTN team at [facility].
Original Note:
Today's Communication / Plan
-
Echocardiogram today
Impression / Plan
-
BACKGROUND: 73-year-old woman with a past medical history of acute on chronic heart failure, severe pulmonary hypertension, recurrent pleural and pericardial effusion status post pericardial window, COPD, home oxygen dependence presented with
worsening of shortness of breath.
Turn Down Man: SHABNAM Robison
Sr. Manager Marketing: Sixto Davies MD
Shortness of breath, multifactorial.
-Combination of COPD, severe pulmonary hypertension, CHF with fluid overload, and hypoxia
Chronic hypoxic respiratory insufficiency, on 4 L nasal cannula continuously (baseline)
Abnormal troponin, likely nonischemic myocardial injury
-Peak 0.236
-Chest pain free
-EKG stable
HFpEF, hronic
-Severe pulm hypertension with history of RV failure in the past.
-She is on Bumex 2mg PO daily, she presented with overdiuresis
-Case Mgmt to mena Sglt2i
-Trend daily weight, I/O, goal net negative
Pulmonary HTN, severe
-Update TTE
-[facility] 05/2023: PA 97/34, PCWP 14, RA 12
-Continue Bumex
KYLIE on CKD3, resolved, creatinine at peak on arrival (1.9)
Essential hypertension, on Bumex and spironolactone q48H in the outpatient setting
Coronary artery disease, on aspirin, Zetia, pitavastatin
Cardiac Tamponade with Idiopathic Pericardial Effusion (03/2022)
-Aborted robotic assisted access s/p Subxiphoid Pericardiotomy and Pericardiectomy into the left chest by Dr. Diaz on 04/01/22
Former smoker, continued cessation recommended
Type II DM, Hgba1c 7.1%
PAD
Subjective:
ANNE/SOB unchanged. No orthopnea.
Physical Exam
Vital Signs/Labs
Vital Signs
Temp Pulse Resp BP Pulse Ox
98.0 F 111 20 126/72 97
09/13/23 07:14 09/13/23 08:52 09/13/23 08:01 09/13/23 08:52 09/13/23 08:01
09/12/23 09/13/23 09/14/23
06:59 06:59 06:59
Actual Weight 69.088 kg 67.7 kg
09/13/23 05:50
09/13/23 05:50
Triglycerides 114 mg/dl (10-149) 09/12/23 Unknown
LDL Cholesterol, Calc 55 mg/dl 09/12/23 Unknown
VLDL Cholesterol, Calc 22 mg/dl (0-30) 09/12/23 Unknown
HDL Cholesterol 43 mg/dl 09/12/23 Unknown
09/11/23
16:09
Qsx-[id number] Pept [id number]
LAB Results
09/11/23 09/11/23 09/12/23
16:09 20:39 01:30
Troponin I 0.240 H* 0.236 H* Cancelled
09/12/23 09/12/23 09/12/23
02:50 08:30 14:30
Troponin I 0.203 H* Cancelled Cancelled
09/12/23
Unknown
Troponin I 0.168 H*
Physical Exam
Constitutional: No acute distress and Comfortable
EENT: Anicteric and Moist mucous membranes
Cardiovascular: Rhythm & rate is regular and S1S2 is normal
Respiratory: Labored respirations and Other (diminished)
GI: Soft, Distention absent, Flat, Non tender and Normal bowel sounds
Neuro/Psych: AO x 3
Other: Skin (warm and dry)
Data Reviewed
-
Date of Service: September 13, 2023
--- NOTE | 2023-09-13 12:44 | CM ---
Patient with Dx acute SOB, Chronic hypoxic respiratory insufficiency, Elevated troponins, HF. O2 4L. PT Eval pending.
Met with patient who resides with her in a 2 story house with 1 KEVIN.
The patient has been independent in ADLs and ambulation without using any assist devices.
Patient admits to being SOB when climbing stairs up to bedroom.
DME - R[facility], O2 through [employer] including In[employer] portable
VN - prior [facility]
No prior SNF
PCP - Haroldo Soto
Pharmacy - [facility], also Meds by Mail through [facility]
CM Consult: mena check Jardiance 10mg QD & Farxiga 10mg QD
Spoke with pharmacist [facility] - Farxiga $139.99/month, Jardiance $154.62.
Gave patient Free Month cards for both Jardiance & Farxiga.
Patient says she fills her meds thru [facility] at no cost. She wants to talk with manager school re; indication for use----> spoke with Dr Burroughs.
Patient may benefit from PT Eval due to SOB---> message to Dr Beckman.
Patient says she does not want [facility] again at discharge.
Plan follow up after PT Eval.
--- NOTE | 2023-09-13 14:05 | RESPNOTE ---
patient states after having inhalers as inpatient, she prefers inhalers to home nebulizers at this time.
interested in having PRN proair inhaler when discharged.
[2023-09-13] MEDS: XANAX 0.5 MG PO ×2 (16:19→21:09)
--- NOTE | 2023-09-13 16:59 | CON.PUL ---
Consultation
Consultation Request
Date/Time Consultation Requested: 09/13/2023 - 151
Date/Time Consultation Performed: 09/13/2023 - 1619
Requesting Provider: Dr. Beckman
Performing Provider: Dr. Welch
Reason for Consultation: pHTN
Medical History
-
Chief Complaint: SOB
History of Present Illness:
73-year-old female with a past medical history of DM type II, hypertension, former tobacco use disorder, severe pulmonary pretension, PAD, CAD and a reported history of COPD on home O2 at 2-3 L/min who presents with SOB X 3 days. She told triage
that she usually is on 5-6 L/min nasal cannula at home. In triage she was requiring 5 L/min and she was saturating 99%, she was breathing at 24 breaths/min, BP 115/63, pulse rate 76 and she was afebrile to 97.3 �F. Creatinine elevated at 1.9,
troponin elevated at 0.240, proBNP elevated at 17,900, and CXR showed left lower lobe chronic pleural-parenchymal scarring with no acute cardiopulmonary process. She was admitted to the hospitalist service to the IMU and now pulmonary service
consulted for additional management/recommendations.
When I saw the patient today she was laying in bed in no acute distress, on 4 L/min nasal cannula saturating 98%, breathing at 18 breaths/min with heart rate 103. She says she uses oxygen at home with an Inogen, and also has a concentrator. She
had previously seen a saas architect, Dr. Hardy, but they had seen Dr. He at [facility] who recommended that they be treated downtown at [facility] but the patient did not want that. No actual treatments have been started for the
patient. The patient says that she does get very short of breath with minimal activity, but she does not have shortness of breath at rest. She currently denies headache, chest pain, abdominal pain, fevers or chills.
PMHx: DM type II, hypertension, hyperlipidemia, depression, history of COPD on home O2 at 2-3 L/min, former tobacco use disorder, recurrent idiopathic pericardial effusion, hypertension, severe pulmonary hypertension, PAD, insomnia, CAD
PSHx: Partial thyroidectomy, hysterectomy, pericardiocentesis, subxiphoid pericardiotomy and pericardiectomy
Past Medical History
Past Medical History: Other (Above as per HPI)
Past Surgical History: Other (Above as per HPI)
Social History
Tobacco: Former Smoker (Quit in April 2019)
Alcohol: None
Personal:
Living: With Family
Employment: Retired
Family History
Family History: CAD, Cancer (Mother: Colon cancer) and Other (Father: Alcoholic from cirrhosis)
Allergies / Home Medications
Allergies
Allergy/AdvReac Type Severity Reaction Status Date / Time
No Known Allergies Allergy Verified 09/11/23 18:50
Home Medications
�Medication �Instructions �Recorded �Confirmed �Last Taken �Type
Albuterol Nebulizer 1 dose inhalation R TID 09/11/23 09/11/23 09/11/23 History
Lung/Breathing Issues
alprazolam 0.5 mg tablet 0.5 mg PO HS Mental Health/Anxiety 09/11/23 09/11/23 09/10/23 History
bumetanide 2 mg tablet 2 mg PO BID Fluid 09/11/23 09/11/23 09/11/23 History
Retention/Swelling
buspirone 7.5 mg tablet 15 mg PO BID Mental Health/Anxiety 09/11/23 09/11/23 09/11/23 History
docusate sodium 100 mg capsule 100 mg PO BID Constipation 09/11/23 09/11/23 09/11/23 History
(Stool Softener)
ezetimibe 10 mg tablet 10 mg PO DAILY High Cholesterol 09/11/23 09/11/23 09/11/23 History
fluticasone fur. 100 mcg-umeclid 1 inh inhalation R DAILY 09/11/23 09/11/23 09/11/23 History
62.5 mcg-vilant 25 mcg Lung/Breathing Issues
inhalat.powder (Trelegy Ellipta)
glyburide 5 mg-metformin 500 mg 2 tab PO BID Diabetes 09/11/23 09/11/23 09/11/23 History
tablet
ibuprofen 200 mg tablet 400 mg PO DAILYPRN PRN mild pain 09/11/23 09/11/23 09/11/23 History
ipratropium 0.5 mg-albuterol 3 mg 3 ml inhalation R TIDPRN PRN 09/11/23 09/11/23 09/11/23 History
(2.5 mg base)/3 mL nebulization sob/wheezing
soln
paroxetine HCl 40 mg tablet 40 mg PO DAILY Mental 09/11/23 09/11/23 09/11/23 History
Health/Anxiety
pioglitazone 15 mg tablet 15 mg PO DAILY Diabetes 09/11/23 09/11/23 09/11/23 History
pitavastatin calcium 2 mg tablet 2 mg PO DAILY High Cholesterol 09/11/23 09/11/23 09/11/23 History
spironolactone 25 mg tablet 25 mg PO Q48H@0800 Blood Pressure 09/11/23 09/11/23 09/11/23 History
trazodone 100 mg tablet 100 mg PO HS sleep/mental health 09/11/23 09/11/23 09/10/23 History
Review of Systems
-
History Source: Patient
All other systems: Negative unless noted (12 point ROS performed and is negative unless mentioned above.)
Vitals / Labs / Diagnostic Testing
Vital Signs
Temp Pulse Resp BP Pulse Ox
98.0 F 108 16 108/94 96
09/13/23 16:22 09/13/23 16:19 09/13/23 14:04 09/13/23 16:19 09/13/23 14:04
Lab Data
09/13/23 05:50
09/13/23 05:50
Diagnostic Testing:
Physical Exam
-
HEENT: Normocephalic and Anicteric
Cardiovascular: S1/S2, Peripheral Edema (Negative) and JVD (Negative)
Respiratory: Wheeze (Negative), Rales (Left base), Rhonchi (Negative) and Non-Labored Respirations
GI: Soft, Non Distended, Non Tender and Normal Bowel Sounds
Neurology: Awake, Alert and Tremors (n)
Skin: Warm and Dry
General: Comfortable, Fever (Negative) and Chills (Negative)
Assessment
-
Assessment: 73-year-old female with a past medical history of DM type II, hypertension, former tobacco use disorder, severe pulmonary pretension, PAD, CAD and a reported history of COPD on home O2 at 2-3 L/min who presents with SOB X 3 days. She
told triage that she usually is on 5-6 L/min nasal cannula at home. In triage she was requiring 5 L/min and she was saturating 99%, she was breathing at 24 breaths/min, BP 115/63, pulse rate 76 and she was afebrile to 97.3 �F. Creatinine elevated
at 1.9, troponin elevated at 0.240, proBNP elevated at 17,900, and CXR showed left lower lobe chronic pleural-parenchymal scarring with no acute cardiopulmonary process. She was admitted to the hospitalist service to the IMU and now pulmonary
service consulted for additional management/recommendations.
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
insomnia, CAD
Impression:
#Acute on chronic respiratory failure with hypoxia -likely due to worsening severe pulmonary hypertension
#Severe pulmonary hypertension suspected to be multifactorial but includes group I, II, III + V (CKD) - I believe that she is who functional class III with high risk features given her elevated proBNP without signs of left-sided heart failure
#KYLIE on CKD (baseline creatinine approximately 1.1)
#Hx of COPD on home O2; she has significant bronchodilator response in the small lung [place] as well as improvement in her gas exchange capacity when accounting for alveolar volume, both of this is suspicious for asthma
#Former tobacco use disorder
Plan:
- She had seen Dr. Bagley with [facility], now [facility] by [facility], and was offered to initiate pulmonary hypertension treatment at [facility] but patient refused
- I personally reviewed the patient's last right heart catheterization report from 05/2023 and patient has severe pulmonary hypertension with Group 1 physiology with low PCWP, high PVR + severely elevated mPAP
- Need to rule out other etiologies that could be contributing to her PH --> check v/q scan to rule out CTEPH and check echo to assess LVEF and R-sided pressures/function
- Continue with triple inhaler therapy as she takes trelegy at home --> continue Symbicort 80mcg + spiriva respimat with prn albuterol --> raise symbicort to 160mcg dose
- We should repeat RHC with vasoreactivity testing --> continue home bumex dose in interim cj given her resolving KYLIE
- I will speak to cardiology about performing a RHC because if she is vasa reactive then we can start nifedipine and assess for improvement; she reportedly, however, was on amlodipine in the past and did not have any improvement in her ANNE.
- Tomorrow I will check ABG and repeat BMP � if patient's PaCO2 remains <32 and proBNP remain elevated, then she continues to have high risk features despite her WHO functional class III symptoms, and supports even more of her being treated with a
parenteral agent (i.e. epoprostenol vs treprostinil) possibly in combination with sildenafil vs bosentan
- Maintain SpO2 >88-94% with supplemental O2 as needed
- Incentive spirometer encouraged
- Replete electrolytes with K>4, Mg>2
- Maintain euglycemia with goal BG >100 and <180
- prn nebulized bronchodilators
- DVT ppx
Pulmonary service will continue to follow along.
Total time spent today was 75 minutes for this encounter. Time includes reviewing laboratory test/imaging results, reviewing pertinent medical records, obtaining and reviewing medical history, performing an appropriate exam, ordering medications,
tests and procedures. Time also includes documentation of this encounter, coordinating patient care and communicating with other healthcare professionals. Total time does not include separately billed tests performed on this date of service.
Data:
CXR 09-13-2023:
Mild cardiomegaly, unchanged.
No acute pulmonary process.
RHC :
HEMODYNAMIC DATA (RHC performed at weight 167 pounds on 3 L/min O2)
AO: 108/55
LV: 108/16
PCWP: 14
PA: 97/34
RV: 97/16
RA: 12
Oximetry: Ao 91%, PA 68%, cardiac output 4.4, cardiac index 2.4
CONCLUSIONS
1: Normal left heart filling pressures with elevated right heart filling pressures and severe pulmonary hypertension
2: Normal left ventricular segmental wall motion with EF 68%
3. Noncritical CAD as described similar in appearance to the prior study from January 2022
4. Compared with the prior study from January 2022, the pulmonary artery pressure has increased (was measured in 2021 at 82/24 with PCWP 20 and RA 15). The coronary anatomy is similar
[2023-09-13] MEDS: DESYREL 100 MG PO (21:09)
--- NOTE | 2023-09-13 22:38 | PTCARENOTE ---
Pt requests PM PRN Xanax. Medication administered to Pt by this RN. Pt stood and pivot to BSC to void. Pt resting with relaxation videos on TV. RR even and unlabored. Call light in reach.
[2023-09-14] VITALS (16 sets, daily range): BP systolic 83–147; BP diastolic 45–110; PULSE 81; O2SAT 98; BMI 24.8
[2023-09-14 05:29] LABS: B.E. 7.4 mmol/L; HCO3 31.2 mmol/L (21-28); O2 Saturation % 98.4 % (94-98); PCO2 40 mmHg (32-35); PO2 84 mmHg (83-108)
[2023-09-14 05:31] LABS: O2 Therapy 4 L/min
[2023-09-14] MEDS: ZETIA 10 MG PO (07:48)
[2023-09-14] MEDS: BUMEX 2 MG PO ×2 (07:48→15:27)
[2023-09-14] MEDS: COLACE 100 MG PO ×2 (07:48→21:06)
[2023-09-14] MEDS: PAXIL 40 MG PO (07:48)
[2023-09-14] MEDS: BUSPAR 15 MG PO ×2 (07:49→21:06)
[2023-09-14] MEDS: LIPITOR 10 MG PO (07:49)
[2023-09-14] MEDS: ALDACTONE 25 MG PO (07:50)
--- NOTE | 2023-09-14 07:52 | PTCARENOTE ---
Pt AAOx3. N{O maintained took pills with little water
[2023-09-14] MEDS: SPIRIVA RESPIMAT 2.5 MCG 2 PUFF INH (08:24)
[2023-09-14] MEDS: SYMBICORT 160/4.5 MCG INHALER 2 PUFF INH ×2 (08:24→20:14)
[2023-09-14] MEDS: ProAIR HFA INHALER 2 PUFF INH ×3 (08:24→20:14)
--- NOTE | 2023-09-14 10:20 | PTCARENOTE ---
Pt not having heart cath wants to go home
--- NOTE | 2023-09-14 10:42 | W.PN.PUL3 ---
Today's Communication / Plan
-
Continue with maintenance inhalers with Spiriva, Symbicort, albuterol
Continue with Bumex at home dose
Up OOB as tolerated
Continue with supplemental oxygen and wean down as tolerated to maintain SpO2 >89%
Patient is awaiting transfer to tertiary care center at [facility]
Pulmonary service will continue to follow along while she awaits transfer
Assessment
-
Assessment: 73-year-old female with a past medical history of DM type II, hypertension, former tobacco use disorder, severe pulmonary pretension, PAD, CAD and a reported history of COPD on home O2 at 2-3 L/min who presents with SOB X 3 days. She
told triage that she usually is on 5-6 L/min nasal cannula at home. In triage she was requiring 5 L/min and she was saturating 99%, she was breathing at 24 breaths/min, BP 115/63, pulse rate 76 and she was afebrile to 97.3 �F. Creatinine elevated
at 1.9, troponin elevated at 0.240, proBNP elevated at 17,900, and CXR showed left lower lobe chronic pleural-parenchymal scarring with no acute cardiopulmonary process. She was admitted to the hospitalist service to the IMU and now pulmonary
service consulted for additional management/recommendations.
Chronic conditions BEHAVIORAL HEALTH WORKER: DM type II, hypertension, hyperlipidemia, depression, history of COPD on home O2 at 2-3 L/min, former tobacco use disorder, recurrent idiopathic pericardial effusion, hypertension, severe pulmonary hypertension, PAD,
insomnia, CAD
Impression:
#Acute on chronic respiratory failure with hypoxia -likely due to worsening severe pulmonary hypertension
#Severe pulmonary hypertension suspected to be multifactorial but includes group I, II, III + V (CKD) - I believe that she is who functional class III with high risk features given her elevated proBNP without signs of left-sided heart failure
#Dilated RV with RV systolic dysfunction with valvular heart disease including severe TR + trace PI
#KYLIE on CKD (baseline creatinine approximately 1.1)
#Hx of COPD on home O2; she has significant bronchodilator response in the small lung [place] as well as improvement in her gas exchange capacity when accounting for alveolar volume, both of this is suspicious for asthma
#Former tobacco use disorder
Plan:
- She had seen Dr. Bagley with [facility], now owned by [employer], and was offered to initiate pulmonary hypertension treatment at [facility] but patient refused
- I personally reviewed the patient's last right heart catheterization report from 05/2023 and patient has severe pulmonary hypertension with Group I physiology with low PCWP, high PVR + severely elevated mPAP
- Need to rule out other etiologies that could be contributing to her PH --> v/q scan shows low probability of chronic PE; TTE done on 09/13/2023 shows preserved LVEF at 60 to 65% with mild concentric LVH, signs of RV pressure/volume overload with
stage I diastolic dysfunction, and RV dysfunction with dilated RV and severe TR with PASP 96 assuming an RAP of 15 mmHg.
- Continue with triple inhaler therapy as she takes trelegy at home --> continue Symbicort 160mcg + spiriva respimat with prn albuterol
- We should repeat RHC with vasoreactivity testing --> continue home bumex dose in interim cj given her resolving KYLIE
- Case discussed with cardiology, and given her severe pHTN with high risk features, she should be taken care of further workup and management of her pHTN at a tertiary care center where they specialize in pHTN. There they can do a RHC with
vasoreactivity testing, and hopefully can start nifedipine and assess for improvement; she reportedly, however, was on amlodipine in the past and did not have any improvement in her ANNE.
- Given her high risk features, she will likely need to be treated with a parenteral agent (i.e. epoprostenol vs treprostinil) possibly in combination with sildenafil vs bosentan
- Maintain SpO2 >88-94% with supplemental O2 as needed
- Incentive spirometer encouraged
- Replete electrolytes with K>4, Mg>2
- Maintain euglycemia with goal BG >100 and <180
- prn nebulized bronchodilators
- DVT ppx
Pulmonary service will continue to follow along while she awaits transfer to [facility]
Total time spent today was 50 minutes for this encounter. Time includes reviewing laboratory test/imaging results, reviewing pertinent medical records, obtaining and reviewing medical history, performing an appropriate exam, ordering medications,
tests and procedures. Time also includes documentation of this encounter, coordinating patient care and communicating with other healthcare professionals. Total time does not include separately billed tests performed on this date of service.
Data:
V/Q Scan 09-13-2023:
Low probability study for pulmonary embolism.
No intracranial findings to suggest right to left shunt.
CXR 09-13-2023:
Mild cardiomegaly, unchanged.
No acute pulmonary process.
TTE 09-13-2023:
Small LV size with normal systolic function and no regional wall motion
abnormalities.
LVEF is 60 to 65% by Back's method of discs.
Mild concentric LVH.
Flattened septum in systole and diastole consistent with RV pressure and volume
overload.
Stage I diastolic dysfunction suggestive of abnormal relaxation.
Dilated RV with reduced systolic function.
Moderately dilated right atrium.
Severe tricuspid regurgitation.
Estimated pulmonary artery pressure of 96 mmHg assuming a right atrial pressure
of 15 mmHg. Severe pulmonary hypertension.
No prior study available for comparison.
RHC :
HEMODYNAMIC DATA (RHC performed at weight 167 pounds on 3 L/min O2)
AO: 108/55
LV: 108/16
PCWP: 14
PA: 97/34
RV: 97/16
RA: 12
Oximetry: Ao 91%, PA 68%, cardiac output 4.4, cardiac index 2.4
CONCLUSIONS
1: Normal left heart filling pressures with elevated right heart filling pressures and severe pulmonary hypertension
2: Normal left ventricular segmental wall motion with EF 68%
3. Noncritical CAD as described similar in appearance to the prior study from January 2022
4. Compared with the prior study from January 2022, the pulmonary artery pressure has increased (was measured in 2021 at 82/24 with PCWP 20 and RA 15). The coronary anatomy is similar
Subjective Data
-
Date of Service:
Date of Service: September 14, 2023
Chief Complaint: Pulmonary Follow Up
Subjective:
Patient seen and evaluated today at bedside. She is breathing okay. Currently on 4 L/min nasal cannula saturating 97%. Heart rate 97 and BP 107/58. Discussion held today with cardiology and we will work on transferring her to [place] for further
workup and management of her pulmonary hypertension. She is 'disgusted' that she has been here for 4 days and we have not done anything about it or transferred her out until now. I explained the reasonings why the this has happened but she still
is very upset about this. She currently denies chest pain, headache, abdominal pain, fevers or chills.
Review of Systems
General: Other (Negative unless mentioned above)
Objective Data
Data Reviewed
Vital Signs / I&O / Oxygen:
Vital Signs
Temp Pulse Resp BP Pulse Ox
98.7 F 104 26 140/83 98
09/14/23 11:39 09/14/23 10:16 09/14/23 10:16 09/14/23 08:00 09/14/23 10:18
Intake and Output
09/13/23 09/14/23 09/15/23
06:59 06:59 06:59
Intake Total 480 / 480 480 / 480
Balance 480 / 480 480 / 480
SaO2 98
Nasal Cannula flow liters per 4
minute
Physical Exam
General: Respiratory Distress (Negative) and Comfortable
HEENT: Normocephalic and Anicteric
Cardiovascular: S1-S2, JVD (Negative) and Peripheral Edema (Negative)
Respiratory: Wheeze (Negative), Crackles (Left base), Rhonchi (Negative) and Non-Labored Respirations
GI: Soft, Non Distended, Non Tender and Normal Bowel Sounds
Neurology: AO x 3 and Tremors (Negative)
Skin: Warm, Dry and Jaundice (Negative)
Labs/Micro/Reports
Lab Data
09/13/23 05:50
09/13/23 05:50
Laboratory Results
09/14/23
05:23
pH 7.50 H
pCO2 40 H
pO2 84
HCO3 31.2 H
O2 Delivery Level 4 l/min
--- NOTE | 2023-09-14 11:25 | W.PN.HOSP.TC ---
Today's Communication/Plan
-
Tx to [facility]
Assessment / Plan
Assessment / Plan
SOB-acute on chronic worsening. Patient known to have severe pulmonary hypertension. She had a recent left and right heart catheterization May of this year. Right heart catheterization then showed increased pulmonary hypertension but no
evidence of left-sided increased filling pressures suggesting non cardiac pulm HTN.
Currently patient with elevated BNP and indeterminate troponins-ECHO noted - no suggestion of new left heart failure.
BNP elevation can also be noted in right ventricular failure which is a possibility in her with severe pulmonary hypertension.
She seems stable on her 4 L home O2 oxygen currently .
VQ scan low probability of PE
Plan for repeat right heart cath with medication challenge noted but cardiology felt she would be best served in pulmonary hypertension tertiary care center and after discussion with the family patient referred to [facility] where
she is accepted.
CW home diuretics
Elevated troponins-left heart catheterization in June 19 showed nonobstructive CAD. Troponins in the intermediate level suspect nonischemic myocardial injury. Continue to follow
CKD 3 with elevated Cr - based on improvement pt had an element of KYLIE. Clincally no obvious fluid overload - CXR neg for CHF,no LE edema , no anasarca. Hard to eval fluid status. No extrarenal losses based on the history. Cr improved. Follow Cr
for now.Advised no NSAIDs at home.
Chronic hypoxic respiratory sufficiency-patient on 4 L of oxygen at home which she will continue
History of COPD-currently without any flare.
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
Check echo
Zya-pwovqfg-aawwzljsc diabetes type 2
Will consider stopping pioglitazone in heart failure situation. For now hold glyburide and metformin combination. Follow on a sliding scale insulin. HbA1c 7.1
Essential Hypertension - Continue current BP meds
Hyperlipidemia - Continue home med
Chronic insomnia - continue trazodone
Multi-nodular thyroid status post partial thyroidectomy - Check TSH
Peripheral arterial disease with lower extremity claudication
Depression - continue SSRI
Code: DNR
VCD for DVTp
Avoid heparin given recent head bleed.
Discussed with cardiology Dr. Chase and pulmonary Dr. Welch today. Cardiology arranged for transfer to pulmonary hypertension group at [facility]. Both patient and the daughter are agreeable.
Discussed with transfer ctr at [place].
Tx when bed available.
Total time of transfer 40min
Anticipated Discharge: Today
Subjective/Interval History
-
Date of Service: September 14, 2023
No events from overnight.
Breathing okay. Remains on home O2.
Denies any chest pain.
No fevers.
Objective Data
-
Labs:
Laboratory Results
09/14/23
05:23
HCO3 31.2 H
Vital Signs:
Vital Signs
Temp Pulse Resp BP Pulse Ox
97.6 F 104 26 140/83 98
09/14/23 08:23 09/14/23 10:16 09/14/23 10:16 09/14/23 08:00 09/14/23 10:18
I&O
09/13/23 09/14/23 09/15/23
06:59 06:59 06:59
Intake Total 480 / 480 480 / 480
Balance 480 / 480 480 / 480
Review of Systems
-
EENT: Denies Sore Throat
Respiratory: Denies Cough
Abdomen/GI: Denies Nausea or Vomiting
Neuro: Denies Dizzy
Physical Exam
-
General: No Apparent Distress
HEENT: Moist Mucous Membranes
Respiratory: Clear to Auscultation
Cardiac: Regular Rhythm and S1/S2
GI: Soft, Nontender, Nondistended and Normal Bowel Sounds
Musculoskeletal: No Edema
Neuro: AO x 3
Psych: Calm; Negative Confused
Data Reviewed
-
CT Scan: Report Reviewed by me (vq scan)
Labs: Labs Reviewed by me
--- NOTE | 2023-09-14 11:30 | PTCARENOTE ---
Pt daughter spoke with pt, pt now open to tx to [facility]
--- NOTE | 2023-09-14 12:14 | W.PN.CD ---
Today's Communication / Plan
-
-
-
Will benefit from transfer to tertiary care program for further evaluation and treatment of right heart failure from severe pulmonary HTN.
I arranged transfer to [place] [facility] team and the Pulm HTN Cardiology group will see her in consult.
Daughter updated
over 55 min spent in care for this patient
Impression / Plan
-
Aluminum Boats Assembler: SHABNAM Robison
Child Care Center Assistant Director: Sixto Davies MD
Severe pulmonary HTN, etiology uncertain, may be mixed but left heart failure is not a significant component
Right heart failure
KYLIE, improved
HTN
Mild CAD
Prior pericardial effusion
Former smoker, continued cessation recommended
Type II DM, Hgba1c 7.1%
PAD
COPD, not enough to explain pulm HTN
Subjective:
ANNE/SOB unchanged. No orthopnea.
Physical Exam
Vital Signs/Labs
Vital Signs
Temp Pulse Resp BP Pulse Ox
98.7 F 104 26 140/83 98
09/14/23 11:39 09/14/23 10:16 09/14/23 10:16 09/14/23 08:00 09/14/23 10:18
09/13/23 09/14/23 09/15/23
06:59 06:59 06:59
Actual Weight 67.7 kg 67.7 kg
09/13/23 05:50
09/13/23 05:50
Triglycerides 114 mg/dl (10-149) 09/12/23 Unknown
LDL Cholesterol, Calc 55 mg/dl 09/12/23 Unknown
VLDL Cholesterol, Calc 22 mg/dl (0-30) 09/12/23 Unknown
HDL Cholesterol 43 mg/dl 09/12/23 Unknown
09/11/23
16:09
Zem-[id number] Pept 30104
LAB Results
0609/11/23 09/12/23
16:09 20:39 01:30
Troponin I 0.240 H* 0.236 H* Cancelled
09/12/23 09/12/23 09/12/23
02:50 08:30 14:30
Troponin I 0.203 H* Cancelled Cancelled
09/12/23
Unknown
Troponin I 0.168 H*
Physical Exam
Constitutional: No acute distress
EENT: Anicteric
Cardiovascular: Rhythm & rate is regular and Pedal edema is absent
Respiratory: Respiratory effort normal and Lungs clear to auscul.
GI: Soft and Distention absent
Neuro/Psych: AO x 3
Data Reviewed
-
Date of Service: September 14, 2023
[2023-09-14] MEDS: XANAX 0.5 MG PO ×2 (12:37→21:06)
--- NOTE | 2023-09-14 15:36 | CM ---
Patient with Dx acute SOB, Chronic hypoxic respiratory insufficiency. Plan tertiary care center for treatment right heart failure from severe pulmonary HTN- [facility] accepted. O2 4L. PT recommends HH.
Plan transfer to [facility] when bed available.
[2023-09-14] MEDS: DESYREL 100 MG PO (21:06)
--- NOTE | 2023-09-14 21:22 | PTCARENOTE ---
pt awaiting transfer to [place], bed available, to be picked up around 0230, report called and given to Ladi. pt aware of transport.
== END 2023-09-15 01:45 | disposition short-term general hospital (02) | DRG 314 ==
LOC: IMU 21:40
PROVIDERS: Emergency Medicine; ADMITTING PHYSICIAN Internal Medicine; ATTENDING PHYSICIAN Internal Medicine; CONSULT PHYSICIAN Internal Medicine Cardiovascular Disease; CONSULT PHYSICIAN Internal Medicine Critical Care Medicine; EMERGENCY PHYSICIAN Emergency Medicine; FAMILY PHYSICIAN Family Medicine
DX: I27.20 Pulmonary hypertension, unspecified (principal); J96.21 Acute and chronic respiratory failure with hypoxia; N17.9 Acute kidney failure, unspecified; I13.0 Hypertensive heart and chronic kidney disease with heart failure and stage 1 through stage 4 chronic kidney disease, or unspecified chronic kidney disease; I50.32 Chronic diastolic (congestive) heart failure; J44.9 Chronic obstructive pulmonary disease, unspecified; E11.22 Type 2 diabetes mellitus with diabetic chronic kidney disease; N18.30 Chronic kidney disease, stage 3 unspecified; F32.A Depression, unspecified; I25.10 Atherosclerotic heart disease of native coronary artery without angina pectoris; E11.51 Type 2 diabetes mellitus with diabetic peripheral angiopathy without gangrene; E04.2 Nontoxic multinodular goiter; F51.04 Psychophysiologic insomnia; E78.5 Hyperlipidemia, unspecified; Z66 Do not resuscitate; Z87.891 Personal history of nicotine dependence; Z90.710 Acquired absence of both cervix and uterus; Z99.81 Dependence on supplemental oxygen
CPT/HCPCS: 36600; 71045; 71046; 78582; 80048; 80053; 80061; 82805; 83036; 83880; 84484; 85025; 85027; 93005; 93306; 94640; 97162; 99285; A9540; A9567

== ENCOUNTER 2024-12-24 10:33 | Emergency (ER) | payer MEDICARE, OTHER, SELFPAY ==
[2024-12-24 10:34] VITALS: BP 125/75
--- NOTE | 2024-12-24 11:17 | ED.GENMED ---
History of Present Illness
General
Chief Complaint: Abdominal Symptoms
Source: patient and family
Exam Limitations: none
Time Seen by Provider: 12/24/24 11:13
Nursing documentation reviewed up to this point in time: agreed with
History of Present Illness
History of Present Illness:
74-year-old female with history of COPD, chronic hypoxic respiratory insufficiency on 4 L nasal O2, CKD 3, idiopathic pericardial effusion, pulmonary hypertension, diabetes mellitus, HTN, HLD presents for 9 days of right low back pain that
radiates around her side into her right abdomen. Describes the pain as sharp 'like somebody is putting a knife' in her back. She states the pain is severe and has been having difficulty sleeping for the past 3 nights. She does have chronic back
pain from arthritis for which she takes Tylenol and Voltaren but states this pain is different and those medications have not touched this pain. She denies CP, SOB, fever or chills. She has been nauseous but has not vomited. States pain is
constant, unrelenting and 8.5/10. She denies diarrhea or constipation, denies difficulty or pain with urination.
12/15, went to [facility], ER had labs, chest x-ray, plain CT abdomen pelvis, labs included BNP and lipase. Daughter shows me these results and her lipase was mildly elevated at 81, her CT showed a distended gallbladder and patient and
daughter state they gave her Dilaudid and Zofran and sent her home
12/19, pain persisted so she went to her PCP Abrahan Back who ordered an abdominal ultrasound and also an MRI of her back. Patient has appointment for each of these in December. She also ordered her a appointment with rheumatology which she
also has in December. She has known idiopathic pericardial effusion and has not appointment on 01/03 for a heart catheterization at [facility]. She prescribed tramadol 25 mg and metaxalone 400 mg twice daily, these did not help so her PCP instructed her
that she could increase tramadol 50 mg every 12 hours and this has not helped
12/20, pain persisted and she went to [place] ER with her back pain' they did nothing.' They gave her 1 pill for her back pain saying it was probably muscular.
Past History
Past History
ED Past Medical History: COPD (On home oxygen 3 L nasal cannula), HTN, Hypercholesterolemia, NIDDM, Hypothyroidism and Psychiatric (Anxiety/depression)
ED Past Surgical History: Cardiac (Pericardiocentesis 01/2022)
Social History
Tobacco: Former smoker
Alcohol: None
Personal:
Living: with family
Review of Systems
Review of Systems
Allergies reviewed?: Yes
All Other Systems: ROS reviewed and negative except as documented in HPI and ROS
Phy Exam
Physical Exam
Physical Exam:
GENERAL: No acute distress. A&Ox3.
CONSTITUTIONAL: Afebrile.
EYES: clear, conjunctivae normal
ENMT: moist mucus membranes, Pharynx nl
RESPIRATORY: Regular respirations, nonlabored, lungs clear.
CARDIOVASCULAR: Regular rate and rhythm, no murmurs, no rubs.
GI: Soft, nondistended, mild tenderness with palpation of the right abdomen. normal BS
MUSCULOSKELETAL: Palpation over right flank aggravates her pain. Moves with ease. Well perfused.
SKIN: Warm, dry, pink
PSYCH: Normal mood and affect. Well kept, interactive and appropriate
NEUROLOGIC: Awake, alert and oriented. No focal neurological deficits
Course
Orders/Labs/Results
Orders:
Orders
12/24/24 11:37
Iohexol [Omnipaque] See Protocol PO NOW STA
12/24/24 11:38
CT Abd/pel W Iv And Oral Contr Urgent
Comment:
Reason For Exam: Right back and abdominal pain
US Abdomen Complete/Upper Urgent
Comment:
Reason For Exam: Right back and abdominal pain
12/24/24 11:39
0.9% Sodium Chloride 500 ml [Nss] 500 ml IV BOLUS
HYDROmorphone [Dilaudid] 0.5 mg IV NOW STA
Ondansetron Injectable [Zofran] 4 mg IV NOW STA
12/24/24 12:05
Complete Blood Count/With Diff Urgent
Comprehensive Metabolic Panel Urgent
Lipase Urgent
12/24/24 13:46
HYDROmorphone [Dilaudid] 0.5 mg .ROUTE .STK-MED ONE
12/24/24 13:47
Urinalysis Reflex To Culture Urgent
Date Specimen was Collected: 12/24/24
Time Specimen was Collected: 13:46
Comment: clean catch
Urine Microscopic Reflex Cult Urgent
12/24/24 13:49
HYDROmorphone [Dilaudid] 0.5 mg IV NOW STA
Abnormal Lab Results
12/24/24 12/24/24
12:05 13:47
MCHC 32.5 L g/dL
(33.0-37.0)
MPV 11.4 H fL
(7.4-10.4)
Absolute Neuts (auto) 6.7 H 10^3/uL
(1.4-6.5)
Absolute Lymphs (auto) 1.1 L 10^3/uL
(1.2-3.4)
Neutrophils % 78.8 H %
(42.2-75.2)
Lymphocytes % 12.8 L %
(20.5-51.1)
BUN 22 H mg/dl
(7-17)
Glucose 142 H mg/dl
(70-99)
Total Protein 8.4 H g/dl
(6.3-8.2)
Albumin 5.4 H g/dl
(3.5-5.0)
Urine Ketones 1+ A
(Negative)
Urine Bacteria (Reflex) Few A
(Negative)
Urine Albumin (Reflex) 3+ A
(Neg - Trace)
12/24/24 12:05
12/24/24 12:05
Vital Signs
Initial and Last Documented VS:
Initial Vital Signs
Temp Pulse Resp BP Pulse Ox
98.0 F 75 20 125/75 93
12/24/24 10:34 12/24/24 10:34 12/24/24 10:34 12/24/24 10:34 12/24/24 10:34
Last Documented Vital Signs
Temp Pulse Resp BP Pulse Ox
98.0 F 76 20 165/59 95
12/24/24 10:34 12/24/24 12:24 12/24/24 10:34 12/24/24 16:26 12/24/24 16:01
MDM/Problems Addressed
Differential Diagnosis Includes:
Lumbar strain, herniated lumbar disc, spinal stenosis, osteoarthritis, sacroiliitis, kidney stone,
Cholecystitis, diverticulitis, colitis
MDM/Problems Addressed:
74-year-old female with history of COPD, chronic hypoxic respiratory insufficiency on 4 L nasal O2, CKD 3, idiopathic pericardial effusion, pulmonary hypertension, diabetes mellitus, HTN, HLD presents for 9 days of right low back pain that
radiates around her side into her right abdomen. Describes the pain as sharp 'like somebody is putting a knife' in her back. She states the pain is severe and has been having difficulty sleeping for the past 3 nights. She does have chronic back
pain from arthritis for which she takes Tylenol and Voltaren but states this pain is different and those medications have not touched this pain. She denies CP, SOB, fever or chills. She has been nauseous but has not vomited. States pain is
constant, unrelenting and 8.5/10. She denies diarrhea or constipation, denies difficulty or pain with urination.
12/15, went to [facility], ER had labs, chest x-ray, plain CT abdomen pelvis, labs included BNP and lipase. Daughter shows me these results and her lipase was mildly elevated at 81, her CT showed a distended gallbladder and patient and
daughter state they gave her Dilaudid and Zofran and sent her home
12/19, pain persisted so she went to her PCP Abrahan Back who ordered an abdominal ultrasound and also an MRI of her back. Patient has appointment for each of these in December. She also ordered her a appointment with rheumatology which she
also has in December. She has known idiopathic pericardial effusion and has not appointment on 01/03 for a heart catheterization at [facility]. She prescribed tramadol 25 mg and metaxalone 400 mg twice daily, these did not help so her PCP instructed her
that she could increase tramadol 50 mg every 12 hours and this has not helped
12/20, pain persisted and she went to [place] ER with her back pain' they did nothing.' They gave her '1 pill' for her back pain saying it was probably muscular.
Afebrile, NAD
1:15 PM:
CBC unremarkable
CMP with no clinically significant abnormality
Lipase normal
UA negative
2:00 PM:
Patient states pain medication is wearing off and is requesting another dose of pain medication. Second dose of Dilaudid 0.5 mg ordered
4:00 PM:
Ultrasound upper abdomen radiology report read: IMPRESSION:
No sonographic evidence for an acute abnormality of the abdomen.
Question small bilateral intrarenal calculi.
Small gallbladder polyps measuring up to 2 mm. No further imaging follow-up is required per ACR guidelines.
Patient to proceed to CAT scan for left-sided abdominal pain.
4:45 PM:
I have been in to evaluate patient several times during this visit and at no time did she seem in considerable amount of pain, she has been sitting up on the edge of her bed the entire time, eating a snack at times.
She moves around with ease
CT abdomen pelvis with IV and oral contrast radiology report read:No CT evidence for an acute process in the abdomen or pelvis.
Daughter comes to desk saying patient is requesting more pain medication.
Instructed to stop the metaxalone and try the Flexeril. To keep her appointment with MRI and rheumatology. Think about pain management if all are negative
Copy of ultrasound and CAT scan reports given to patient
Patient was calm at discharge.
*Pulse Oximetry
SaO2: 93
Nasal Cannula flow liters per minute: 2
Patient hypoxic: no
*Critical Care Note
Total Time (30-74mins, 75-104mins- exclusive of procedures): Not Applicable
ED Attending Note
-
Portions of this chart may have been created with voice recognition software.� Occasional wrong word or��sound alike� substitutions may have occurred due to the inherent limitations of voice recognition software.
Discharge Plan
Departure
Patient Disposition: Home (Routine Discharge)
Date of Disposition: 12/24/24
Time of Disposition: 16:56
Patient with high blood pressure during this ER visit?: No
Condition: Fair
Discharge Problem:
Low back pain
Instructions: Low back pain - ED (DC)
Prescriptions:
No Action
Albuterol Nebulizer
1 dose inhalation R TID
Patient Comments:
09/11/2023, pt. gets this med. through .
pioglitazone 15 mg Tablet
15 mg PO DAILY
ipratropium-albuterol 0.5 mg-3 mg(2.5 mg base)/3 mL Solution For Nebulization
3 ml INHALATION R TIDPRN PRN (Reason: sob/wheezing)
bumetanide 2 mg Tablet
2 mg PO BID
spironolactone 25 mg Tablet
25 mg PO Q48H@0800
alprazolam 0.5 mg Tablet
0.5 mg PO HS
trazodone 100 mg Tablet
100 mg PO HS
glyburide-metformin 5-500 mg Tablet
2 tab PO BID
ibuprofen 200 mg Tablet
400 mg PO DAILYPRN PRN (Reason: mild pain)
docusate sodium [Stool Softener] 100 mg Capsule
100 mg PO BID
buspirone 7.5 mg Tablet
15 mg PO BID
paroxetine HCl 40 mg Tablet
40 mg PO DAILY
ezetimibe 10 mg Tablet
10 mg PO DAILY
pitavastatin calcium 2 mg Tablet
2 mg PO DAILY
Trelegy Ellipta 100-62.5-25 mcg Blister With Device
1 inh INHALATION R DAILY
Referrals:
ABRAHAN STEINER, [Family Provider, Family Practice] - Keep scheduled appt
Activity Restrictions/Additional Instructions:
As we discussed, there is nothing worrisome in your workup here today.
You may want to consider pain management if all the work ups show nothing to explain your pain.
Interventions
Interventions:
*Risk Screen - Suicide Last Done: 12/24/24 10:34
*General Assessment Last Done: 12/24/24 10:34
*Neglect/Abuse Screening Last Done: 12/24/24 12:20
*ED- Fall Risk Assessment Last Done: 12/24/24 12:19
*ED COVID-19 Vaccine History Last Done: 12/24/24 12:19
*Nursing Disposition Last Done: 12/24/24 17:21
DL-Ezvbex-Nbpzaryckg Assessment Last Done: 12/24/24 12:21
Discharge Date and Time
Discharge Date/Time: 12/24/24 17:22
Print Language: PUERTO RICAN
[2024-12-24] MEDS: OMNIPAQUE 50 ML PO (12:03)
[2024-12-24] MEDS: NSS 500 IV (12:14)
[2024-12-24] MEDS: DILAUDID 0.5 MG IV ×2 (12:15→13:49)
[2024-12-24] MEDS: ZOFRAN 4 MG IV (12:15)
[2024-12-24 12:19] VITALS: BMI 25.1
[2024-12-24 12:23] VITALS: BP 142/84
[2024-12-24 12:24] VITALS: BP 142/84
[2024-12-24 12:26] LABS: Hematocrit 42.4 % (37.0-47.0); Hemoglobin 13.8 g/dL (12.0-16.0); Mean Corp Hgb Conc. 32.5 g/dL (33.0-37.0); Mean Corpuscular Volume 94.0 fL (81.0-99.0); Nucleated Red Blood Cells % 0 %; Platelet Count 180 10^3/uL (130-400); Red Cell Dist. Width 13.5 % (11.5-14.5)
[2024-12-24 12:43] LABS: ALT (SGPT) 19 U/L (0-35); AST (SGOT) 23 U/L (14-36); Albumin 5.4 g/dl (3.5-5.0); Alkaline Phosphatase 43 U/L (38-126); Blood Urea Nitrogen 22 mg/dl (7-17); Calcium 10.2 mg/dl (8.4-10.2); Carbon Dioxide 27 mmol/L (22-30); Chloride 105 mmol/L (98-107); Estimated Creatinine Clearance 41 ml/min; Glucose 142 mg/dl (70-99); Lipase 256 U/L (23-300); Potassium 3.9 mmol/L (3.5-5.1); Sodium 141 mmol/L (135-145); Total Protein 8.4 g/dl (6.3-8.2); eGFR 58.39
[2024-12-24 13:50] VITALS: BP 200/72
[2024-12-24 13:56] LABS: Urine Character Clear (Clear)
[2024-12-24 14:00] VITALS: BP 181/66
[2024-12-24 14:08] LABS: Urine Red Blood Cell 0-2 /HPF (0-2); Urine White Cell 0-2 /HPF (0-5)
[2024-12-24 16:26] VITALS: BP 165/59
== END 2024-12-24 17:22 | disposition home or self-care (01) ==
LOC: EMR 10:33
PROVIDERS: Registered Nurse; EMERGENCY PHYSICIAN Emergency Medicine; FAMILY PHYSICIAN Student in an Organized Health Care Education/Training Program
DX: M54.50 Low back pain, unspecified (principal); E11.22 Type 2 diabetes mellitus with diabetic chronic kidney disease; I12.9 Hypertensive chronic kidney disease with stage 1 through stage 4 chronic kidney disease, or unspecified chronic kidney disease; N18.30 Chronic kidney disease, stage 3 unspecified; I27.20 Pulmonary hypertension, unspecified; E78.00 Pure hypercholesterolemia, unspecified; J44.9 Chronic obstructive pulmonary disease, unspecified; J96.11 Chronic respiratory failure with hypoxia; E03.9 Hypothyroidism, unspecified; F41.9 Anxiety disorder, unspecified; F32.A Depression, unspecified; M47.819 Spondylosis without myelopathy or radiculopathy, site unspecified; Z79.84 Long term (current) use of oral hypoglycemic drugs; Z99.81 Dependence on supplemental oxygen; Z87.891 Personal history of nicotine dependence
CPT/HCPCS: 99284; 96374; 96375; 96376; 96361; 74177; 76700; 80053; 81003; 81015; 83690; 85025; Q9967